=== PATIENT | male | born 1990 | race Caucasian/White ===

== ENCOUNTER 2017-05-31 05:19 | Emergency (ER) | payer SELFPAY ==
[2017-05-31 05:28] VITALS: BP 111/79; PULSE 76; RESP 15; TEMP 98.2; O2SAT 97
--- NOTE | 2017-05-31 05:52 | EDPHY ---
H & P Stated Complaint: cat bite 2 days ago right 2nd finger, now unable to move finger HPI/ROS: HPI CHIEF COMPLAINT: Cat bite to right index finger. HISTORY OF PRESENT ILLNESS: Patient otherwise healthy 27-year-old male, presents emergency room with a cat bite to his right index finger. He sustained this on Tuesday. He does okay however last night he noticed that his finger was more painful red and swollen. Localized swelling or redness to puncture site where the cat bit him on the right index finger. He does not have a sausage digit. He denies fever. Denies significant drainage. He does have full range of motion is able to flex and extend appropriately. But it does cause him pain. Reports his tetanus shot is up-to-date. Past Medical History: Denies medical history Past Surgical History: Denies recent surgery Social History: Smokes tobacco, denies other illicit drugs or alcohol. Family History: Noncontributory ROS REVIEW OF SYSTEMS: A comprehensive 10 point review of systems is otherwise negative aside from elements mentioned in the history of present illness. Exam Constitutional appears well nontoxic triage nursing summary reviewed, vital signs reviewed, awake/alert. Eyes normal conjunctivae and sclera, EOMI, PERRLA. HENT normal inspection, atraumatic, moist mucus membranes, no epistaxis, neck supple/ no meningismus, no raccoon eyes. Respiratory clear to auscultation bilaterally, normal breath sounds, no respiratory distress, no wheezing. Cardiovascular rate normal, regular rhythm, no murmur, no edema, distal pulses normal. Gastrointestinal soft, non-tender, no rebound, no guarding, normal bowel sounds, no distension, no pulsatile mass. Genitourinary no CVA tenderness. Musculoskeletal no midline vertebral tenderness, full range of motion, no calf swelling, no tenderness of extremities, no meningismus, good pulses, neurovascularly intact. Right hand: Right index finger: Puncture site to the middle of the right index finger lateral side. No palpable foreign body. No sausage digit. Good cap refill. Full range of motion. Localized erythema and swelling to the puncture site. No signs of flexor tenosynovitis Skin pink, warm, & dry, no rash, skin atraumatic. Neurologic awake, alert and oriented x 3, AAOx3, moves all 4 extremities equally, motor intact, sensory intact, CN II-XII intact, normal cerebellar, normal vision, normal speech. Psychiatric normal mood/affect. Heme/Lymph/Immune no lymphadenopathy. Differential Diagnosis: Includes but is not limited to in a particular order CAT bite, localized cat bite infection, cellulitis, foreign body, tenosynovitis. Medical Decision Making: Plan for this patient x-ray to rule out foreign body, cat tooth, Augmentin 1st dose given in the emergency room. Re-evaluation: 0559: I did explain to the patient that he needs to watch this very closely if he gets worse which includes worsening swelling, redness or drainage or fever or worsening pain he needs return emergency room. He understands he needs close Hand surgery follow-up he should call there today for follow-up appointment next 24 hours. Antibiotics as prescribed. I also additionally told him he needs to do warm soaks 5 times a day for 20 minutes. Patient understands this. Additionally understands strict return precautions he understands follow-up with Hand Surgeon understands return emergency room if he has worsening pain swelling fever redness drainage or any questions or concerns. X-ray has been reviewed I do not appreciate a foreign body. Source: Patient - Personal History Current Tetanus/Diphtheria Vaccine: Yes - Medical/Surgical History Hx Asthma: No Hx Chronic Respiratory Disease: No Hx Diabetes: No Hx Cardiac Disease: No Hx Renal Disease: No Hx Cirrhosis: No Hx Alcoholism: No Hx HIV/AIDS: No Other PMH: PMHx: kidney stones. PSHx: meniscus R knee - Social History Smoking Status: Current every day smoker Constitutional: Initial Vital Signs Temperature (C) 36.8 C 05/31/17 05:21 Heart Rate 76 05/31/17 05:21 Respiratory Rate 15 05/31/17 05:21 Blood Pressure 111/79 05/31/17 05:21 O2 Sat (%) 97 05/31/17 05:21 O2 Delivery Mode Room Air Allergies/Adverse Reactions: No Known Allergies Allergy (Unverified 07/09/13 12:39) Home Medications: Medication Instructions Recorded Amoxicillin/Clavulanate Pot 875 mg PO BID #14 tab 05/31/17 [Augmentin 875 MG TAB (*)] Medical Decision Making - Data Points Medications Given: Discontinued Medications Amoxicillin/Clavulanate Potassium (Augmentin 875mg) 875 mg PO EDNOW ONE PRN Reason: Protocol Stop: 05/31/17 05:57 Last Admin: 05/31/17 06:04 Dose: 875 mg Departure - Departure Disposition: Home, Routine, Self-Care Clinical Impression: Cat bite Qualifiers: Encounter type: initial encounter Qualified Code(s): W55.01XA - Bitten by cat, initial encounter Condition: Good Instructions: Animal Bite (ED), Cellulitis (ED) Additional Instructions: 1. I recommend that you do warm soaks 5 times a day for 20 minutes. 2. Follow-up with Hand surgery in the next 24 hours please call their for an appointment. 3. Take your antibiotics as prescribed. 4. Return to the emergency room immediately if he develops worsening symptoms includes worsening pain, redness, drainage or questions or concerns. Referrals: NONE *PRIMARY CARE P,. [Primary Care Provider] - As per Instructions Fahad Garcia MD [Medical Doctor] - As per Instructions Prescriptions: Amoxicillin/Clavulanate Pot [Augmentin 875 MG TAB (*)] 875 mg PO BID #14 tab
[2017-05-31] MEDS ORDERED: AMOXICILLIN/CLAVULANATE POT 875/125 MG TAB PO ONE (05:56)
== END 2017-05-31 06:33 | disposition home or self-care (01) ==
DX: S61.250A Open bite of right index finger without damage to nail, initial encounter (principal); F17.200 Nicotine dependence, unspecified, uncomplicated; W55.01XA Bitten by cat, initial encounter
CPT/HCPCS: L3925